=== PATIENT | female | born 1975 | race Caucasian/White ===

== ENCOUNTER 2017-10-15 11:04 | Emergency (ER) | payer SELFPAY ==
--- NOTE | 2017-10-15 12:23 | RAD ---
RADIOGRAPH LEFT CLAVICLE TWO VIEWS: History: 41-year-old female with acute traumatic left clavicular pain, due to blunt trauma, kicked by horse. FINDINGS: No acute fracture of the left clavicle is identified. IMPRESSION: Negative. POS: [facility]
== END 2017-10-15 12:21 | disposition home or self-care (01) ==
LOC: ERS 11:04
DX: S20.212A Contusion of left front wall of thorax, initial encounter (principal); S00.83XA Contusion of other part of head, initial encounter; E05.00 Thyrotoxicosis with diffuse goiter without thyrotoxic crisis or storm; Z79.899 Other long term (current) drug therapy; W55.12XA Struck by horse, initial encounter

== ENCOUNTER 2018-04-01 15:25 | Outpatient (CLI) | payer MEDICAID | END 2018-04-01 15:26 | disposition home or self-care (01) | LOC: BICMAMMO 15:25 | DX: Z12.31 Encounter for screening mammogram for malignant neoplasm of breast (principal); Z80.3 Family history of malignant neoplasm of breast | CPT/HCPCS: 77067 ==